=== PATIENT | female | born 1975 | race Caucasian/White ===

== ENCOUNTER → 2022-02-22 | Outpatient (CLI) | payer BC ==
--- NOTE | 2022-02-23 09:51 | DIREP ---
PROCEDURE:US PELVIC FOLLOWED BY TRANSVAGINAL COMPARISON:None. INDICATIONS:R10.2 PELVIC AND PERINEAL PAIN TECHNIQUE:Pelvic ultrasound using transabdominal technique. Endovaginal images were also obtained for better assessment of the uterus and adnexa. FINDINGS: UTERUS:Surgically absent. The vaginal cuff appears unremarkable. RIGHT OVARY:Normal appearance. 3.1 x 1.3 x 4.2 cm. LEFT OVARY:Normal appearance. 3.3 x 1.6 x 3.4 cm. CUL-DE-SAC:Normal. OTHER:Negative. CONCLUSION:Postsurgical changes with hysterectomy. Both ovaries are normal. No adnexal mass or free fluid is seen. Dictated by: [facility] HOSPITALJessica Physician on 02/23/2022 at 09:38 AM ac
== END | disposition home or self-care (01) ==
LOC: RAD 09:44
PROVIDERS: ATTEND Nurse Practitioner Women's Health
DX: R10.2 Pelvic and perineal pain (principal); Z90.710 Acquired absence of both cervix and uterus
CPT/HCPCS: 76830; 76856

== ENCOUNTER → 2025-01-12 | Outpatient (CLI) | payer OTHER | END | disposition home or self-care (01) | LOC: RAD 10:28 | PROVIDERS: ATTEND Nurse Practitioner Family | DX: M47.817 Spondylosis without myelopathy or radiculopathy, lumbosacral region (principal); M54.50 Low back pain, unspecified | CPT/HCPCS: 72100 ==

== ENCOUNTER → 2025-01-13 | Outpatient (CLI) | payer OTHER | END | disposition home or self-care (01) | LOC: RAD 15:25 | PROVIDERS: ATTEND Nurse Practitioner Family | DX: K46.9 Unspecified abdominal hernia without obstruction or gangrene (principal); R19.06 Epigastric swelling, mass or lump | CPT/HCPCS: 76705 ==